=== PATIENT | female | born 1955 | race Caucasian/White ===

== ENCOUNTER 2018-06-10 11:21 | Inpatient (IN) | payer MEDICARE ==
[~2018-06-10] VITALS: Ht 165.1 cm; Wt 61.3 kg
[2018-06-10 12:23] LABS: BASOPHILS # (AUTO) 0.01 x10^3/uL (0-0.1); BASOPHILS % (AUTO) 0 % (0-1); EOSINOPHILS # (AUTO) 0.02 x10^3/uL (0-0.4); EOSINOPHILS % (AUTO) 0 % (1-7); LYMPHOCYTES % (AUTO) 13 % (22-44); MD NO; MEAN CORPUSCULAR HEMOGLOBIN 32.7 pg (27.0-34.8); MEAN CORPUSCULAR HGB CONC 33.6 g/dL (32.4-35.8); MEAN CORPUSCULAR VOLUME 97.3 fL (80-100); MEAN PLATELET VOLUME 7.9 fL (7.4-10.4); MONOCYTES # (AUTO) 0.33 x10^3/uL (0.2-0.8); MONOCYTES % (AUTO) 6 % (2-9); NEUTROPHILS # (AUTO) 4.56 x10^3/uL (1.8-6.8); NEUTROPHILS % (AUTO) 81 % (42-75); PLATELET COUNT 318 x10^3/uL (130-400); RED BLOOD COUNT 4.21 x10^6/uL (3.82-5.3); RED CELL DISTRIBUTION WIDTH 14.6 % (9.6-15.2)
[2018-06-10 12:34] LABS: ALANINE AMINOTRANSFERASE 8 U/L (12-78); ALBUMIN 4.3 g/dL (3.4-5.0); ANION GAP 8 mmol/L (5-15); CALCIUM 9.1 mg/dL (8.5-10.1); CHLORIDE 108 mmol/L (98-107); CREATININE 0.77 mg/dL (0.55-1.02)
[2018-06-10 12:37] LABS: ALKALINE PHOSPHATASE 103 U/L (45-117); BILIRUBIN,TOTAL 1.7 mg/dL (0.2-1.0); TOTAL PROTEIN 7.8 g/dL (6.4-8.2)
[2018-06-10 15:21] VITALS: BP 135/82
[2018-06-10] MEDS ORDERED: CARB1TAB20 PO (15:39)
[2018-06-10] MEDS ORDERED: AMAN100T PO (15:39)
[2018-06-10] MEDS ORDERED: CLON2TAB9 PO (15:39)
[2018-06-10] MEDS: SODIUM CHLORIDE 0.9% 1,000 ML IV SCH ×2 (16:35→18:43)
[2018-06-10] MEDS ORDERED: TEMAZEPAM 15 MG CAPSULE PO PRN (17:00)
[2018-06-10] MEDS ORDERED: ONDANSETRON 2MG/ML, 2ML IVPush PRN (17:00)
[2018-06-10] MEDS ORDERED: ENALAPRILAT 1.25 MG/ML, 2ML IVPush PRN (17:00)
[2018-06-10] MEDS ORDERED: POLYETHYLENE GLYCOL 17 GM PACKET PO PRN (17:00)
[2018-06-10] MEDS ORDERED: ACETAMINOPHEN 325 MG TABLET PO PRN (17:00)
[2018-06-10] MEDS: BACLOFEN 10 MG TABLET PO PRN (18:21)
[2018-06-10 19:09] VITALS: BP 128/71
[2018-06-10] MEDS: CARBIDOPA/LEVODOPA 10 MG/100 MG TABLET PO SCH (20:57)
[2018-06-10] MEDS: AMANTADINE HCL 137 MG HOMEMEDPO SCH (21:00)
[2018-06-11] MEDS: SODIUM CHLORIDE 0.9% 1,000 ML IV SCH ×3 (00:59→21:38)
[2018-06-11 01:58] VITALS: BP 137/82
[2018-06-11 02:50] VITALS: BP 137/80
[2018-06-11 06:40] VITALS: BP 132/77
[2018-06-11 06:42] LABS: MICROSCOPIC AUTO
[2018-06-11 06:50] LABS: CULTURE INDICATED? YES
[2018-06-11 06:52] LABS: AMPHETAMINE SCREEN, URINE Negative (Negative); BARBITURATE SCREEN, URINE Negative (Negative); BENZODIAZEPINE SCREEN, URINE Negative (Negative); CANNABINOID SCREEN, URINE Negative (Negative); COCAINE SCREEN, URINE Negative (Negative); METHADONE SCREEN, URINE Negative (Negative); OPIATE SCREEN, URINE Negative (Negative)
[2018-06-11] MEDS: CARBIDOPA/LEVODOPA 10 MG/100 MG TABLET PO SCH ×4 (09:05→21:39)
[2018-06-11 14:35] VITALS: BP 134/84
[2018-06-11] MEDS: CEFTRIAXONE 1,000 MG in SODIUM CHLORIDE 0.9% 50 ML IV SCH (17:06)
[2018-06-11] MEDS: AMANTADINE HCL 137 MG HOMEMEDPO SCH (21:00)
[2018-06-11 21:08] VITALS: BP 138/75
[2018-06-12 01:30] VITALS: BP 127/73
[2018-06-12] MEDS: SODIUM CHLORIDE 0.9% 1,000 ML IV SCH ×3 (04:20→18:15)
[2018-06-12] MEDS: CARBIDOPA/LEVODOPA 10 MG/100 MG TABLET PO SCH ×7 (05:42→21:59)
[2018-06-12 07:36] VITALS: BP 108/66
[2018-06-12 12:45] VITALS: BP 119/71
[2018-06-12 15:15] LABS: MICROSCOPIC NOT IND
[2018-06-12] MEDS: CEFTRIAXONE 1,000 MG in SODIUM CHLORIDE 0.9% 50 ML IV SCH (17:05)
[2018-06-12 18:33] LABS: CLOSTRIDIUM DIFFICILE ANTIGEN NEGATIVE; CLOSTRIDIUM DIFFICILE TOXIN NEGATIVE (Negative)
[2018-06-12 18:43] VITALS: BP 108/65
[2018-06-12] MEDS: AMANTADINE HCL 137 MG HOMEMEDPO SCH (21:00)
[2018-06-13] MEDS: SODIUM CHLORIDE 0.9% 1,000 ML IV SCH ×3 (00:52→14:40)
[2018-06-13 01:19] VITALS: BP 148/81
[2018-06-13] MEDS: CARBIDOPA/LEVODOPA 10 MG/100 MG TABLET PO SCH ×3 (05:03→13:30)
[2018-06-13 06:23] LABS: ANION GAP 9 mmol/L (5-15); CHLORIDE 113 mmol/L (98-107)
[2018-06-13 06:24] LABS: CREATININE 0.48 mg/dL (0.55-1.02)
[2018-06-13 07:18] VITALS: BP 125/72
[2018-06-13] MEDS: BACLOFEN 10 MG TABLET PO PRN (09:20)
[2018-06-13 13:31] VITALS: BP 117/66
[2018-06-13] MEDS ORDERED: CLON2TAB9 PO (14:17)
== END 2018-06-13 16:27 | disposition home or self-care (01) | DRG 896 ==
LOC: ED 13:50 → EDIP 13:57 → ED 14:18 → 3NE 14:50
PROVIDERS: ADMIT Internal Medicine; ATTEND Internal Medicine
PROC: 0T9B70Z Drainage of Bladder with Drainage Device, Via Natural or Artificial Opening (ICD-10-PCS; principal; 2018-06-12)
DX: F13.231 Sedative, hypnotic or anxiolytic dependence with withdrawal delirium (principal); G93.40 Encephalopathy, unspecified; R41.0 Disorientation, unspecified; Z91.14 Patient's other noncompliance with medication regimen; G20 Parkinson's disease; M48.02 Spinal stenosis, cervical region; F03.90 Unspecified dementia, unspecified severity, without behavioral disturbance, psychotic disturbance, mood disturbance, and anxiety; F32.9 Major depressive disorder, single episode, unspecified; Z81.1 Family history of alcohol abuse and dependence; Z90.710 Acquired absence of both cervix and uterus; Z88.0 Allergy status to penicillin; Z88.6 Allergy status to analgesic agent
CPT/HCPCS: 36415; 70450; 71045; 72125; 80048; 80053; 80307; 81001; 81003; 82140; 82962; 85025; 87040; 87086; 87324; 93005; 99285; G0378; J0696; J7030

== ENCOUNTER 2018-10-17 18:27 | Inpatient (IN) | payer MEDICARE ==
[~2018-10-17] VITALS: Ht 165.1 cm; Wt 60.7 kg
[~2018-10-17 18:27] MED LIST: AMAN100T PO; CARB1TAB20 PO; CLON2TAB9 PO
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
--- NOTE | 2018-10-17 18:49 | NUR ---
ULISSES ZEPEDA NOTIFIED OF PT AND WHAT SHE TOLD ME.
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
--- NOTE | 2018-10-17 19:18 | NUR ---
SW at bedside for eval
[2018-10-17] MEDS ORDERED: LORazepam 0.5MG TABLET ONE (19:23)
[2018-10-17] MEDS ORDERED: LORazepam 0.5MG TABLET PO ONE (19:30)
[2018-10-17] MEDS ORDERED: CARBIDOPA/LEVODOPA CR 25 MG/100 MG TABLET PO ONE (19:30)
[2018-10-17 19:45] LABS: BASOPHILS # (AUTO) 0.01 x10^3/uL (0-0.1); BASOPHILS % (AUTO) 0 % (0-1); EOSINOPHILS # (AUTO) 0.04 x10^3/uL (0-0.4); EOSINOPHILS % (AUTO) 1 % (1-7); LYMPHOCYTES # (AUTO) 0.84 x10^3/uL (1-3.4); LYMPHOCYTES % (AUTO) 17 % (22-44); MD NO; MEAN CORPUSCULAR HEMOGLOBIN 31.6 pg (27.0-34.8); MEAN CORPUSCULAR HGB CONC 33.6 g/dL (32.4-35.8); MEAN PLATELET VOLUME 8.6 fL (7.4-10.4); MONOCYTES # (AUTO) 0.27 x10^3/uL (0.2-0.8); MONOCYTES % (AUTO) 5 % (2-9); NEUTROPHILS # (AUTO) 3.81 x10^3/uL (1.8-6.8); NEUTROPHILS % (AUTO) 77 % (42-75); PLATELET COUNT 293 x10^3/uL (130-400); RED CELL DISTRIBUTION WIDTH 15.6 % (9.6-15.2)
[2018-10-17 19:52] LABS: ALBUMIN 3.9 g/dL (3.4-5.0); ANION GAP 9 mmol/L (5-15); CHLORIDE 109 mmol/L (98-107); CREATININE 0.71 mg/dL (0.55-1.02)
[2018-10-17 19:54] LABS: ACETAMINOPHEN < 2 mcg/mL (10-30); SALICYLATE LEVEL < 1.7 mg/dL (2.8-20.0)
[2018-10-17 20:05] LABS: MICROSCOPIC AUTO
--- NOTE | 2018-10-17 20:14 | NUR ---
pt returned from RAD
[2018-10-17 20:20] LABS: AMPHETAMINE SCREEN, URINE Negative (Negative); BARBITURATE SCREEN, URINE Negative (Negative); BENZODIAZEPINE SCREEN, URINE Negative (Negative); CANNABINOID SCREEN, URINE Negative (Negative); COCAINE SCREEN, URINE Negative (Negative); METHADONE SCREEN, URINE Negative (Negative); OPIATE SCREEN, URINE Negative (Negative)
--- NOTE | 2018-10-17 20:23 | NUR ---
pt tremors ar improving. resting in position of comfort. awaiting test results
[2018-10-17 20:42] LABS: CULTURE INDICATED? YES
--- NOTE | 2018-10-17 21:09 | NUR ---
pt resting in position of comfort. awaiting test results. lip balm given for pt comfort per request
--- NOTE | 2018-10-17 21:49 | NUR ---
pt to be admitted. updated on POC. resting in position of comfort
[2018-10-17] MEDS ORDERED: ACETAMINOPHEN 325 MG TABLET ONE (21:58)
[2018-10-17] MEDS ORDERED: CEFTRIAXONE PMX 1GM/50ML 50 ML ONE (21:58)
[2018-10-17] MEDS ORDERED: ONDANSETRON ODT 4 MG PO PRN (22:00)
[2018-10-17] MEDS ORDERED: POLYETHYLENE GLYCOL 17 GM PACKET PO PRN (22:00)
[2018-10-17] MEDS ORDERED: CARBIDOPA/LEVODOPA CR 50 MG/200 MG TABLET PO SCH (22:00)
[2018-10-17] MEDS ORDERED: LORazepam 1MG TABLET PO PRN (22:00)
[2018-10-17] MEDS: HEPARIN 5,000 UNITS/ML, 1ML SQ SCH (22:00)
[2018-10-17] MEDS ORDERED: BISACODYL 10 MG SUPP PR PRN (22:00)
[2018-10-17] MEDS ORDERED: CEFTRIAXONE PMX 1GM/50ML 50 ML IV SCH (22:00)
--- NOTE | 2018-10-17 22:06 | NUR ---
report called to Zayda HOANG
[2018-10-17] MEDS: ACETAMINOPHEN 325 MG TABLET PO PRN (22:27)
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
--- NOTE | 2018-10-17 22:37 | NUR ---
recieving RN updated on medication administration and need for checking money with security. pt to floor via gurny with transport. IV rocephin infusing
--- NOTE | 2018-10-17 22:40 | NUR ---
pt to floor via gurney with transport. IV ABX infusing
[2018-10-17 23:00] VITALS: BP 136/74
[2018-10-17] MEDS ORDERED: AMANTADINE 10 MG/ML PO SCH (23:00)
[2018-10-17] MEDS: SODIUM CHLORIDE FLUSH 10ML SYR IVF SCH (23:45)
[2018-10-18 01:35] VITALS: BP 116/72
[2018-10-18] MEDS: ACETAMINOPHEN 325 MG TABLET PO PRN (03:52)
[2018-10-18 05:41] LABS: BASOPHILS # (AUTO) 0.02 x10^3/uL (0-0.1); BASOPHILS % (AUTO) 0 % (0-1); EOSINOPHILS % (AUTO) 2 % (1-7); LYMPHOCYTES # (AUTO) 1.31 x10^3/uL (1-3.4); LYMPHOCYTES % (AUTO) 29 % (22-44); MD NO; MEAN CORPUSCULAR HEMOGLOBIN 31.6 pg (27.0-34.8); MEAN CORPUSCULAR HGB CONC 33.6 g/dL (32.4-35.8); MEAN CORPUSCULAR VOLUME 94.3 fL (80-100); MEAN PLATELET VOLUME 8.4 fL (7.4-10.4); MONOCYTES # (AUTO) 0.34 x10^3/uL (0.2-0.8); MONOCYTES % (AUTO) 8 % (2-9); NEUTROPHILS # (AUTO) 2.74 x10^3/uL (1.8-6.8); NEUTROPHILS % (AUTO) 61 % (42-75); PLATELET COUNT 270 x10^3/uL (130-400); RED BLOOD COUNT 4.28 x10^6/uL (3.82-5.3)
[2018-10-18] MEDS: HEPARIN 5,000 UNITS/ML, 1ML SQ SCH ×2 (05:50→14:00)
[2018-10-18 05:53] LABS: CHLORIDE 108 mmol/L (98-107)
[2018-10-18 06:06] LABS: ALBUMIN 3.8 g/dL (3.4-5.0); ALKALINE PHOSPHATASE 86 U/L (45-117); ANION GAP 8 mmol/L (5-15); BILIRUBIN,TOTAL 0.8 mg/dL (0.2-1.0); CREATININE 0.72 mg/dL (0.55-1.02)
[2018-10-18 06:07] LABS: ALANINE AMINOTRANSFERASE < 6 U/L (12-78)
[2018-10-18 06:36] VITALS: BP 160/90
[2018-10-18] MEDS: CARBIDOPA/LEVODOPA 10 MG/100 MG TABLET PO SCH ×3 (07:18→14:55)
[2018-10-18] MEDS ORDERED: SENNA/DOCUSATE TABLET PO SCH (09:00)
[2018-10-18] MEDS: SODIUM CHLORIDE FLUSH 10ML SYR IVF SCH (09:38)
[2018-10-18 12:53] VITALS: BP 98/62
[2018-10-18] MEDS ORDERED: LORazepam 0.5MG TABLET PO PRN (16:00)
[2018-10-18] MEDS ORDERED: CARB1TAB2 PO (17:26)
[2018-10-18] MEDS ORDERED: CARB1TAB5 PO (17:26)
[2018-10-18] MEDS ORDERED: CARBIDOPA/LEVODOPA 10 MG/100 MG TABLET PO SCH (18:00)
[2018-10-18] MEDS ORDERED: AMANTADINE 10 MG/ML PO SCH (21:00)
== END 2018-10-18 18:27 | DRG 57 ==
LOC: ED 20:18 → EDIP 21:10 → 4NOR 22:46
PROVIDERS: ADMIT Hospitalist; ATTEND Hospitalist
DX: G20 Parkinson's disease (principal); N39.0 Urinary tract infection, site not specified; F29 Unspecified psychosis not due to a substance or known physiological condition; I10 Essential (primary) hypertension; T43.505A Adverse effect of unspecified antipsychotics and neuroleptics, initial encounter; Z91.14 Patient's other noncompliance with medication regimen; Z88.5 Allergy status to narcotic agent; Z88.0 Allergy status to penicillin; Y92.89 Other specified places as the place of occurrence of the external cause
CPT/HCPCS: 36415; 70450; 80048; 80053; 80307; 80329; 81001; 82040; 82140; 84443; 85014; 85018; 85025; 87077; 87086; 87186; 96365; G0378; J0696; G0480

== ENCOUNTER 2018-10-18 17:10 | Inpatient (IN) | payer MEDICARE ==
[~2018-10-18] VITALS: Ht 165.1 cm; Wt 55.5 kg
[2018-10-18] MEDS ORDERED: CARB1TAB5 PO (17:26)
[2018-10-18] MEDS ORDERED: CARB1TAB2 PO (17:26)
[2018-10-18] MEDS ORDERED: BISACODYL 10 MG SUPP PR PRN (18:00)
[2018-10-18] MEDS ORDERED: POLYETHYLENE GLYCOL 17 GM PACKET PO PRN (18:00)
[2018-10-18] MEDS ORDERED: DOCUSATE 100 MG CAPSULE PO PRN (18:00)
[2018-10-18] MEDS ORDERED: ONDANSETRON ODT 4 MG PO PRN (18:00)
[2018-10-18 18:52] VITALS: BP 144/86
[2018-10-18] MEDS ORDERED: CEFTRIAXONE PMX 1GM/50ML 50 ML IV SCH (19:00)
[2018-10-18 20:17] VITALS: BP 123/69
[2018-10-18] MEDS: CARBIDOPA/LEVODOPA CR 50 MG/200 MG TABLET PO SCH (20:38)
[2018-10-19] MEDS ORDERED: CARBIDOPA/LEVODOPA 10 MG/100 MG TABLET PO SCH ×2 (00:30→12:30)
[2018-10-19] MEDS: CARBIDOPA/LEVODOPA 10 MG/100 MG TABLET PO SCH ×6 (00:31→22:00)
[2018-10-19 05:50] LABS: HCT (SEDRATE) 42.9 % (34.6-47.8)
[2018-10-19] MEDS: ACETAMINOPHEN 325 MG TABLET PO PRN ×2 (06:11→20:36)
[2018-10-19 06:26] LABS: CHOL/HDL RATIO 2.4; FREE T4 (FREE THYROXINE) 0.87 ng/dL (0.76-1.46); LDL/HDL RATIO 1.2 (0.5-3.0)
[2018-10-19 07:14] VITALS: BP 151/77
[2018-10-19] MEDS: QUETIAPINE 25MG TABLET PO PRN ×2 (08:42→21:02)
[2018-10-19] MEDS: SENNA/DOCUSATE TABLET PO SCH (09:00)
[2018-10-19] MEDS ORDERED: CEFTRIAXONE PMX 1GM/50ML 50 ML IV SCH (19:00)
[2018-10-19 19:19] VITALS: BP 111/65
[2018-10-19] MEDS: CARBIDOPA/LEVODOPA CR 50 MG/200 MG TABLET PO SCH (20:36)
[2018-10-19] MEDS: AMANTADINE 10 MG/ML PO SCH (20:57)
[2018-10-20] MEDS: CARBIDOPA/LEVODOPA 10 MG/100 MG TABLET PO SCH ×5 (02:50→21:00)
[2018-10-20 07:36] VITALS: BP 124/73
[2018-10-20] MEDS: LEVOFLOXACIN 500 MG TABLET PO SCH (09:06)
[2018-10-20] MEDS: SENNA/DOCUSATE TABLET PO SCH (09:06)
[2018-10-20] MEDS: ACETAMINOPHEN 325 MG TABLET PO PRN (12:37)
[2018-10-20] MEDS: METHOCARBAMOL 500 MG TABLET PO PRN (15:10)
[2018-10-20 19:26] VITALS: BP 149/82
[2018-10-20] MEDS: CARBIDOPA/LEVODOPA CR 50 MG/200 MG TABLET PO SCH (21:00)
[2018-10-20] MEDS: AMANTADINE 10 MG/ML PO SCH (21:00)
[2018-10-21] MEDS: METHOCARBAMOL 500 MG TABLET PO PRN ×2 (00:51→08:19)
[2018-10-21] MEDS: CARBIDOPA/LEVODOPA 10 MG/100 MG TABLET PO SCH ×5 (05:13→22:16)
[2018-10-21 07:20] VITALS: BP 156/78
[2018-10-21] MEDS: LEVOFLOXACIN 500 MG TABLET PO SCH (08:19)
[2018-10-21] MEDS: ACETAMINOPHEN 325 MG TABLET PO PRN (08:45)
[2018-10-21] MEDS: SENNA/DOCUSATE TABLET PO SCH (09:38)
[2018-10-21] MEDS: NUPLAZID 17 MG PO SCH (17:18)
[2018-10-21 20:35] VITALS: BP 171/51
[2018-10-21] MEDS: AMANTADINE 10 MG/ML PO SCH (20:56)
[2018-10-21] MEDS: CARBIDOPA/LEVODOPA CR 50 MG/200 MG TABLET PO SCH (20:57)
[2018-10-22] MEDS: CARBIDOPA/LEVODOPA 10 MG/100 MG TABLET PO SCH ×5 (05:58→21:07)
[2018-10-22 07:43] VITALS: BP 92/52
[2018-10-22] MEDS: METHOCARBAMOL 500 MG TABLET PO PRN ×3 (08:14→21:26)
[2018-10-22] MEDS: NUPLAZID 17 MG PO SCH (08:17)
[2018-10-22] MEDS: SENNA/DOCUSATE TABLET PO SCH (08:17)
[2018-10-22] MEDS: LEVOFLOXACIN 500 MG TABLET PO SCH (08:17)
[2018-10-22 19:17] VITALS: BP 135/76
[2018-10-22] MEDS: CARBIDOPA/LEVODOPA CR 50 MG/200 MG TABLET PO SCH (21:07)
[2018-10-22] MEDS: AMANTADINE 10 MG/ML PO SCH (21:07)
[2018-10-23] MEDS: CARBIDOPA/LEVODOPA 10 MG/100 MG TABLET PO SCH ×5 (06:38→21:34)
[2018-10-23] MEDS: METHOCARBAMOL 500 MG TABLET PO PRN ×2 (07:51→13:59)
[2018-10-23 07:52] VITALS: BP 127/68
[2018-10-23] MEDS: LEVOFLOXACIN 500 MG TABLET PO SCH (07:52)
[2018-10-23] MEDS: NUPLAZID 17 MG PO SCH (09:00)
[2018-10-23] MEDS: SENNA/DOCUSATE TABLET PO SCH (09:20)
[2018-10-23 19:16] VITALS: BP 129/73
[2018-10-23] MEDS: AMANTADINE 10 MG/ML PO SCH (20:20)
[2018-10-23] MEDS: CARBIDOPA/LEVODOPA CR 50 MG/200 MG TABLET PO SCH (20:20)
[2018-10-24] MEDS: CARBIDOPA/LEVODOPA 10 MG/100 MG TABLET PO SCH ×5 (05:10→22:25)
[2018-10-24 07:50] VITALS: BP 120/67
[2018-10-24] MEDS: LEVOFLOXACIN 500 MG TABLET PO SCH ×2 (08:00→09:07)
[2018-10-24] MEDS: SENNA/DOCUSATE TABLET PO SCH (08:51)
[2018-10-24] MEDS: NUPLAZID 17 MG PO SCH (09:00)
[2018-10-24] MEDS: METHOCARBAMOL 500 MG TABLET PO PRN ×2 (09:08→14:59)
[2018-10-24 19:28] VITALS: BP 137/84
[2018-10-24] MEDS: DIAZEPAM 5 MG TABLET PO SCH (21:02)
[2018-10-24] MEDS: CARBIDOPA/LEVODOPA CR 50 MG/200 MG TABLET PO SCH (21:02)
[2018-10-24] MEDS: AMANTADINE 10 MG/ML PO SCH (21:04)
[2018-10-25] MEDS: CARBIDOPA/LEVODOPA 10 MG/100 MG TABLET PO SCH ×5 (04:00→22:09)
[2018-10-25 07:56] VITALS: BP 108/62
[2018-10-25] MEDS: LEVOFLOXACIN 500 MG TABLET PO SCH (08:52)
[2018-10-25] MEDS: NUPLAZID 17 MG PO SCH (08:54)
[2018-10-25] MEDS: SENNA/DOCUSATE TABLET PO SCH (08:55)
[2018-10-25] MEDS: METHOCARBAMOL 500 MG TABLET PO PRN ×3 (10:46→22:05)
[2018-10-25 19:42] VITALS: BP 135/75
[2018-10-25] MEDS: DIAZEPAM 5 MG TABLET PO SCH (20:37)
[2018-10-25] MEDS: CARBIDOPA/LEVODOPA CR 50 MG/200 MG TABLET PO SCH (20:37)
[2018-10-25] MEDS: AMANTADINE 10 MG/ML PO SCH (20:37)
[2018-10-26] MEDS: CARBIDOPA/LEVODOPA 10 MG/100 MG TABLET PO SCH ×5 (00:54→21:23)
[2018-10-26 08:00] VITALS: BP 115/71
[2018-10-26] MEDS: LEVOFLOXACIN 500 MG TABLET PO SCH (08:20)
[2018-10-26] MEDS: QUETIAPINE 25MG TABLET PO PRN (08:20)
[2018-10-26] MEDS: SENNA/DOCUSATE TABLET PO SCH (08:24)
[2018-10-26] MEDS: NUPLAZID 17 MG PO SCH (08:24)
[2018-10-26] MEDS: METHOCARBAMOL 500 MG TABLET PO PRN ×3 (10:50→21:24)
[2018-10-26 19:28] VITALS: BP 112/75
[2018-10-26] MEDS: AMANTADINE 10 MG/ML PO SCH (21:23)
[2018-10-26] MEDS: CARBIDOPA/LEVODOPA CR 50 MG/200 MG TABLET PO SCH (21:23)
[2018-10-26] MEDS: DIAZEPAM 5 MG TABLET PO SCH (21:23)
[2018-10-27 07:26] VITALS: BP 104/69
[2018-10-27] MEDS: METHOCARBAMOL 500 MG TABLET PO PRN ×2 (07:35→14:55)
[2018-10-27] MEDS: CARBIDOPA/LEVODOPA 10 MG/100 MG TABLET PO SCH ×4 (07:35→21:12)
[2018-10-27] MEDS: NUPLAZID 17 MG PO SCH (08:50)
[2018-10-27] MEDS: LEVOFLOXACIN 500 MG TABLET PO SCH (08:50)
[2018-10-27] MEDS: QUETIAPINE 25MG TABLET PO PRN (08:50)
[2018-10-27] MEDS: SENNA/DOCUSATE TABLET PO SCH (09:26)
[2018-10-27 19:50] VITALS: BP 128/71
[2018-10-27] MEDS: CARBIDOPA/LEVODOPA CR 50 MG/200 MG TABLET PO SCH (21:11)
[2018-10-27] MEDS: DIAZEPAM 5 MG TABLET PO SCH (21:12)
[2018-10-27] MEDS: AMANTADINE 10 MG/ML PO SCH (21:12)
[2018-10-28] MEDS: CARBIDOPA/LEVODOPA 10 MG/100 MG TABLET PO SCH ×5 (02:47→20:55)
[2018-10-28 07:33] VITALS: BP 121/78
[2018-10-28] MEDS: QUETIAPINE 25MG TABLET PO PRN (08:46)
[2018-10-28] MEDS: METHOCARBAMOL 500 MG TABLET PO PRN ×2 (08:46→17:35)
[2018-10-28] MEDS: SENNA/DOCUSATE TABLET PO SCH (08:47)
[2018-10-28] MEDS: LEVOFLOXACIN 500 MG TABLET PO SCH (08:47)
[2018-10-28] MEDS: NUPLAZID 17 MG PO SCH (08:47)
[2018-10-28 20:00] VITALS: BP 120/76
[2018-10-28] MEDS: CARBIDOPA/LEVODOPA CR 50 MG/200 MG TABLET PO SCH (20:54)
[2018-10-28] MEDS: AMANTADINE 10 MG/ML PO SCH (20:55)
[2018-10-28] MEDS: DIAZEPAM 5 MG TABLET PO SCH (20:55)
[2018-10-29] MEDS: CARBIDOPA/LEVODOPA 10 MG/100 MG TABLET PO SCH ×5 (06:00→22:22)
[2018-10-29 08:00] VITALS: BP 125/78
[2018-10-29] MEDS: LEVOFLOXACIN 500 MG TABLET PO SCH ×2 (08:00→08:17)
[2018-10-29] MEDS: NUPLAZID 17 MG PO SCH ×2 (08:17→08:23)
[2018-10-29] MEDS: SENNA/DOCUSATE TABLET PO SCH (08:18)
[2018-10-29] MEDS: METHOCARBAMOL 500 MG TABLET PO PRN (13:30)
[2018-10-29 19:25] VITALS: BP 139/88
[2018-10-29] MEDS: AMANTADINE 10 MG/ML PO SCH (21:00)
[2018-10-29] MEDS: DIAZEPAM 5 MG TABLET PO SCH (22:22)
[2018-10-29] MEDS: QUETIAPINE 25MG TABLET PO SCH (22:23)
[2018-10-29] MEDS: CARBIDOPA/LEVODOPA CR 50 MG/200 MG TABLET PO SCH (22:23)
[2018-10-30 07:55] VITALS: BP 134/80
[2018-10-30] MEDS: SENNA/DOCUSATE TABLET PO SCH (08:10)
[2018-10-30] MEDS: CARBIDOPA/LEVODOPA 10 MG/100 MG TABLET PO SCH ×4 (09:23→21:28)
[2018-10-30] MEDS: METHOCARBAMOL 500 MG TABLET PO PRN (09:23)
[2018-10-30] MEDS: ACETAMINOPHEN 325 MG TABLET PO PRN ×3 (10:29→21:32)
[2018-10-30 19:44] VITALS: BP 107/68
[2018-10-30] MEDS: QUETIAPINE 25MG TABLET PO SCH (21:00)
[2018-10-30] MEDS: CARBIDOPA/LEVODOPA CR 50 MG/200 MG TABLET PO SCH (21:27)
[2018-10-30] MEDS: DIAZEPAM 5 MG TABLET PO SCH (21:28)
[2018-10-30] MEDS: AMANTADINE 10 MG/ML PO SCH (21:28)
[2018-10-31] MEDS: CARBIDOPA/LEVODOPA 10 MG/100 MG TABLET PO SCH ×3 (05:51→10:00)
[2018-10-31 07:51] VITALS: BP 98/61
[2018-10-31] MEDS ORDERED: QUET25TA7 PO (08:34)
[2018-10-31] MEDS: SENNA/DOCUSATE TABLET PO SCH (09:00)
== END 2018-10-31 11:26 | disposition home or self-care (01) | DRG 885 ==
LOC: 3E 18:32
PROVIDERS: ADMIT Psychiatry & Neurology Psychosomatic Medicine; ATTEND Psychiatry & Neurology Psychosomatic Medicine
DX: F29 Unspecified psychosis not due to a substance or known physiological condition (principal); N39.0 Urinary tract infection, site not specified; G20 Parkinson's disease; F22 Delusional disorders; G47.00 Insomnia, unspecified; B96.20 Unspecified Escherichia coli [E. coli] as the cause of diseases classified elsewhere; B95.1 Streptococcus, group B, as the cause of diseases classified elsewhere; F41.9 Anxiety disorder, unspecified
CPT/HCPCS: 36415; 71045; 80061; 82607; 84439; 85651; 86592; J0696; 92523-GN